=== PATIENT | female | born 1990 | race African-American/Black ===

== ENCOUNTER 2017-05-26 09:37 | Emergency (ER) | payer OTHER ==
[~2017-05-26] VITALS: Ht 162.6 cm; Wt 70.8 kg
[~2017-05-26 09:37] MED LIST: BENZONATATE PO; FLONASE 0.05% N16 G1; IBUPROFEN800 MG PO; LORTAB 5/500 TA1 TA1 PO; NAPROSYN500 MG PO; NAPROXEN PO; PEPCID AC20 MG PO; ZANTAC PO
== END 2017-05-26 11:39 | disposition home or self-care (01) ==
LOC: CED 09:37
DX: R51 Headache (principal); Z79.899 Other long term (current) drug therapy
CPT/HCPCS: 36415; 96374; 96375; 99284; J1100; J1200; J1885; J2765

== ENCOUNTER 2017-06-08 22:07 | Emergency (ER) | payer OTHER ==
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
== END 2017-06-09 | disposition home or self-care (01) ==
LOC: CED 22:07 → CFTX 22:07 → CED 22:38 → CFTX 06-09
DX: S16.1XXA Strain of muscle, fascia and tendon at neck level, initial encounter (principal); S39.012A Strain of muscle, fascia and tendon of lower back, initial encounter; Z79.899 Other long term (current) drug therapy; V49.40XA Driver injured in collision with unspecified motor vehicles in traffic accident, initial encounter; Y93.89 Activity, other specified; Y92.410 Unspecified street and highway as the place of occurrence of the external cause
CPT/HCPCS: 72040; 72100; 84703; 96372; 99283; J1885